=== PATIENT | male | born 2000 | race Caucasian/White ===

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

== ENCOUNTER 2021-06-02 13:50 | Emergency (ER) | payer BC, OTHER ==
[~2021-06-02] VITALS: Ht 175.3 cm; Wt 107.3 kg
[2021-06-02 13:52] VITALS: BP 121/64
== END 2021-06-02 20:28 | disposition home or self-care (01) ==
LOC: M ED 13:50
DX: R11.2 Nausea with vomiting, unspecified (principal); Z88.1 Allergy status to other antibiotic agents; Z88.8 Allergy status to other drugs, medicaments and biological substances